=== PATIENT | female | born 2000 | race African-American/Black ===

== ENCOUNTER 2019-12-13 09:19 | Emergency (ER) | payer OTHER ==
[~2019-12-13] VITALS: Ht 162.6 cm; Wt 49.4 kg
[2019-12-13] MEDS ORDERED: IBUPROFEN600 MG ORAL (09:36)
[2019-12-13] MEDS ORDERED: Ketorolac 60mg Inj IM ONE (09:45)
[2019-12-13] MEDS ORDERED: Ketorolac 30mg Inj IM ONE (09:45)
[2019-12-13 09:49] VITALS: BP 119/76
--- NOTE | 2019-12-13 09:56 | Emergency Room Report ---
History of Present Illness General Chief Complaint: Lower Extremity Injury Source: Patient Present Illness HPI Patient is a 19-year-old female denies any significant past medical history who presents to the ER complaining of right thigh pain that started 3 days ago. Patient states that she walks around a lot and that the pain started after a long day of walking. She denies any actual trauma. She denies falling or hitting it anywhere. She denies any chest pain or shortness of breath. She denies any fever or chills. She denies any back pain. She is not on any hormone replacement or control and denies any recent travel Allergies: Coded Allergies: No Known Allergies (Unverified , 12/13/19) Patient History Past Medical History: none Past Surgical History: none Social History: Denies: smoking, alcohol use, drug use Last Menstrual Period: 12/09/19 Nursing Documentation-[facility] Past Medical History: No Stated History Review of Systems All Other Systems: negative except mentioned in HPI Physical Exam Vital Signs Date Time Temp Pulse Resp B/P (MAP) Pulse Ox O2 Delivery O2 Flow Rate FiO2 12/13/19 09:26 97.9 106 18 129/67 (87) 98 Room Air Sp02 EP Interpretation: reviewed, normal General Appearance: no apparent distress, alert, GCS 15, non-toxic Head: normocephalic, atraumatic Eyes: bilateral eye normal inspection, bilateral eye PERRL ENT: hearing grossly normal, normal pharynx, no angioedema, normal voice Neck: full range of motion, supple/symm/no masses Respiratory: chest non-tender, lungs clear, normal breath sounds, speaking full sentences Cardiovascular #1: regular rate, rhythm, no edema Cardiovascular #2: 2+ carotid (R), 2+ carotid (L), 2+ radial (R), 2+ radial (L) , 2+ dorsalis pedis (R), 2+ dorsalis pedis (L) Gastrointestinal: normal bowel sounds, non tender, soft, non-distended, no guarding, no rebound Rectal: deferred Genitourinary: normal inspection, no CVA tenderness Musculoskeletal: back normal, normal range of motion, calf tenderness, gait/ station normal, other - Right upper outer thigh tenderness to palpation with no deformity, no redness, no weakness, no rash, no ecchymosis physical exam was chaperoned by BETI Lovell Neurologic: alert, motor strength/tone normal, oriented x3, sensory intact, responsive, speech normal Psychiatric: judgement/insight normal, memory normal, mood/affect normal, no suicidal/homicidal ideation Reflexes: 3+ knee (R), 3+ knee (L) Skin: no rash Lymphatic: no adenopathy Medical Decision Making Diagnostic Impression: Primary Impression: Muscle strain ER Course Patient given intramuscular Toradol for pain relief. And a prescription for Motrin. After discussing risks and benefits of further diagnostics, treatment plans, as well as indications for and risks of admission, the patient is agreeable to being discharged home. I have explained that their evaluation and treatment in the emergency department today is an important step towards them achieving better health but that their evaluation today is not intended to replace further evaluation and treatment by a physician in their local clinic. I have explained that while the current findings suggest no immediate life threatening emergency they will require further evaluation and treatment by a physician of their choice in their area. They understand that it will be necessary for them to review the final reports of their ED visit with their clinic physician. We have reviewed indications for return to the Emergency Department. I have explained that additional time may need to pass and/or additional testing as an outpatient may be necessary before a definitive diagnosis can be made. They tell me they are willing to follow up as instructed within the timeframe I recommend. They appear to understand what we discussed. Additionally they understand that if they are unable to be seen by an outpatient physician they are welcome, and in fact should, return to the Emergency Department for a repeat evaluation. The patient is stable at time of discharge. Last Vital Signs Date Time Temp Pulse Resp B/P (MAP) Pulse Ox O2 Delivery O2 Flow Rate FiO2 12/13/19 09:49 98.0 81 18 119/76 100 Room Air Disposition: HOME, SELF-CARE Condition: Stable Scripts Ibuprofen* (MOTRIN*) 600 Mg Tablet 600 MG ORAL Q8H PRN for For Pain, #30 TAB 0 Refills Prov: Stacia Giles M.D. 12/13/19 Referrals: [facility] Remberto Reese [facility] Patient Instructions: Muscle Cramps and Spasms, [id number], Muscle Strain, [id number] Stacia Giles M.D. Dec 13, 2019 09:55
== END 2019-12-13 09:50 | disposition home or self-care (01) ==
LOC: EMR 09:50
DX: S76.911A Strain of unspecified muscles, fascia and tendons at thigh level, right thigh, initial encounter (principal); X50.9XXA Other and unspecified overexertion or strenuous movements or postures, initial encounter; Y93.01 Activity, walking, marching and hiking; Y92.9 Unspecified place or not applicable
CPT/HCPCS: 96372; 99283; J1885

== ENCOUNTER 2019-12-23 10:42 | Emergency (ER) | payer OTHER ==
[~2019-12-23] VITALS: Ht 162.6 cm; Wt 49.9 kg
[~2019-12-23 10:42] MED LIST: IBUPROFEN600 MG ORAL
[2019-12-23 11:15] VITALS: BP 117/68
--- NOTE | 2019-12-23 11:22 | NUR ---
ED Nurse Note: Pt walked into ED w/ R leg pain 10/10 for 4 weeks. Pt has slight numbness on leg. Pt has come to [facility] ER for same complaint before. Pt has baby in room. Pt states RLE has continuous spasms. Denies injury. Site has no visible swelling, redness, wounds. Pt is alert and orientedx4, ambulatory.
[2019-12-23 12:33] LABS: HEMATOCRIT 35.9 % (37.0-47.0); MEAN CORPUSCULAR VOLUME 87 FL (80-99); PLATELET COUNT 387 K/UL (150-450); RED BLOOD COUNT 4.14 M/UL (4.20-5.40); RED CELL DISTRIBUTION WIDTH 12.8 % (11.6-14.8); WHITE BLOOD COUNT 7.7 K/UL (4.8-10.8)
[2019-12-23 12:38] LABS: ANION GAP 11 mmol/L (5-15); BLOOD UREA NITROGEN 7 mg/dL (7-18); CALCIUM 9.2 MG/DL (8.5-10.1); CARBON DIOXIDE 26 MMOL/L (21-32); CHLORIDE 101 MMOL/L (98-107); CREATININE 0.7 MG/DL (0.55-1.30); POTASSIUM 3.4 MMOL/L (3.5-5.1); SODIUM 138 MMOL/L (136-145)
[2019-12-23] MEDS ORDERED: ROBAXIN-750750 MG PO (13:31)
[2019-12-23 13:39] VITALS: BP 118/72
--- NOTE | 2019-12-23 13:39 | NUR ---
ER DISCHARGE NOTE: Patient is cleared to be discharged per ERMD, pt is aox4, on room air, with stable vital signs. pt was given dc and prescription instructions, pt was able to verbalize understanding, pt id band removed. pt is able to ambulate with steady gait. pt took all belongings.
--- NOTE | 2019-12-23 14:09 | Diagnostic Imaging Report ---
Indication: Right thigh Pain Findings: 2 views of the right femur and two-view right hip were obtained. No acute fractures, malalignment, erosions or periostitis are identified. The right hip is unremarkable. Soft tissues are unremarkable. Impression: Negative examination of the femur and right hip
--- NOTE | 2019-12-23 14:10 | Emergency Room Report ---
History of Present Illness General Chief Complaint: Pain Source: Patient Present Illness HPI Patient presents with complaints of sided hip pain Patient was here recently with similar pain Reports that previously she felt that potentially she might have sprained her hip while carrying her child does not recall any specific fall She points to the lateral hip area down the side of her leg on the upper leg on the right side Denies any saddle paresthesia denies any difficulty ambulating denies any back pain denies any fevers or chills patient had a vaginal delivery without any complications COVID-19 risk:Travel to affect: No Allergies: Coded Allergies: No Known Allergies (Unverified , 12/13/19) Patient History Past Medical History: see triage record Last Menstrual Period: 12/09/19 Reviewed Nursing Documentation: PMH: Agreed; PSxH: Agreed Nursing Documentation-PMH Past Medical History: No Stated History Review of Systems All Other Systems: negative except mentioned in HPI Physical Exam Vital Signs Date Time Temp Pulse Resp B/P (MAP) Pulse Ox O2 Delivery O2 Flow Rate FiO2 12/23/19 11:02 98.8 100 16 115/69 (84) 97 Room Air Sp02 EP Interpretation: reviewed, normal General Appearance: well appearing, no apparent distress Head: normocephalic, atraumatic Eyes: bilateral eye PERRL, bilateral eye EOMI ENT: EOM grossly intact Neck: supple Respiratory: lungs clear, no respiratory distress Cardiovascular #1: regular rate, rhythm Gastrointestinal: non tender, soft Musculoskeletal: other - Patient points to the lateral side of the right hip and downwards to the mid upper femur, on exam there is no obvious erythema or edema unable to elevate the right hip without limitation sensory is intact Neurologic: alert, oriented x3 Psychiatric: normal inspection Skin: no rash Lymphatic: normal inspection, no adenopathy Medical Decision Making Diagnostic Impression: Primary Impression: myalgia Additional Impression: hip pain ER Course Multiple differentials including but not limited to septic joint, ligamental injury soft tissue injury, occult bony injury entertained I did want to check the patient's white blood cell count and potassium levels x- ray was also obtained which did not show any acute process patient is ambulatory My suspicion for septic joint is low and patient stable for initial conservative outpatient trial Labs Test 12/23/19 12:02 12/23/19 12:24 White Blood Count 7.7 K/UL (4.8-10.8) Red Blood Count 4.14 M/UL (4.20-5.40) Hemoglobin 12.0 G/DL (12.0-16.0) Hematocrit 35.9 % (37.0-47.0) Mean Corpuscular Volume 87 FL (80-99) Mean Corpuscular Hemoglobin 28.9 PG (27.0-31.0) Mean Corpuscular Hemoglobin Concent 33.3 G/DL (32.0-36.0) Red Cell Distribution Width 12.8 % (11.6-14.8) Platelet Count 387 K/UL (150-450) Mean Platelet Volume 5.5 FL (6.5-10.1) Neutrophils (%) (Auto) % (45.0-75.0) Lymphocytes (%) (Auto) % (20.0-45.0) Monocytes (%) (Auto) % (1.0-10.0) Eosinophils (%) (Auto) % (0.0-3.0) Basophils (%) (Auto) % (0.0-2.0) Differential Total Cells Counted 100 Neutrophils % (Manual) 28 % (45-75) Lymphocytes % (Manual) 63 % (20-45) Monocytes % (Manual) 7 % (1-10) Eosinophils % (Manual) 2 % (0-3) Basophils % (Manual) 0 % (0-2) Band Neutrophils 0 % (0-8) Platelet Estimate Adequate Platelet Morphology Normal Red Blood Cell Morphology Normal Sodium Level 138 MMOL/L (136-145) Potassium Level 3.4 MMOL/L (3.5-5.1) Chloride Level 101 MMOL/L (98-107) Carbon Dioxide Level 26 MMOL/L (21-32) Anion Gap 11 mmol/L (5-15) Blood Urea Nitrogen 7 mg/dL (7-18) Creatinine 0.7 MG/DL (0.55-1.30) Estimat Glomerular Filtration Rate > 60 mL/min (>60) Glucose Level 98 MG/DL (74-106) Calcium Level 9.2 MG/DL (8.5-10.1) Urine HCG, Qualitative Negative (NEGATIVE) Other X-Ray Diagnostic Results Other X-Ray Diagnostic Results #1: X-Ray ordered: Right hip # of Views/Limited Vs Complete: 3 View Indication: Pain EP Interpretation: Yes Interpretation: no dislocation, no soft tissue swelling, no fractures Impression: No acute disease Electronically Signed by: Logan Mercado DO Other X-Ray Diagnostic Results #2: X-Ray ordered: Right femur # of Views/Limited Vs Complete: 2 View Indication: Pain EP Interpretation: Yes Interpretation: no dislocation, no soft tissue swelling, no fractures Impression: No acute disease Electronically Signed by: Logan Mercado DO Last Vital Signs Date Time Temp Pulse Resp B/P (MAP) Pulse Ox O2 Delivery O2 Flow Rate FiO2 12/23/19 13:39 98.8 72 16 118/72 99 Room Air Status: improved Disposition: HOME, SELF-CARE Condition: Improved Scripts Methocarbamol* (ROBAXIN-750*) 750 Mg Tablet 750 MG PO TID, #21 TAB 0 Refills Prov: Logan Mercado DO 12/23/19 Referrals: DORIAN MOREIRA,REFERRING (PCP) [facility] Remberto Boateng. [facility] Patient Instructions: Hip Pain, Hip Bursitis, [id number] Additional Instructions: Patient is provided with the discharge instructions notified to follow up with primary doctor in the next 2-3 days otherwise return to the er with any worsening symptoms. Please note that this report is being documented using [employer] technology. This can lead to erroneous entry secondary to incorrect interpretation by the dictating instrument. Logan Mercado DO Dec 23, 2019 14:10
== END 2019-12-23 13:40 | disposition home or self-care (01) ==
LOC: EMR 11:35
DX: M79.10 Myalgia, unspecified site (principal); M25.551 Pain in right hip
CPT/HCPCS: 36415; 80048; 81025; 85007; 85025; 99284